=== PATIENT | female | born 2000 | race American Indian/Alaskan Native ===

== ENCOUNTER 2018-02-11 15:45 | Emergency (ER) | payer OTHER ==
[2018-02-11 16:05] VITALS: BP 117/80
[2018-02-11 16:38] LABS: Bilirubin,Urine NEG (Negative); Blood,Urine LG (Negative); Color,Urine Yellow (Yellow); Protein,Urine <15 mg/dL mg/dL (Negative); Urobilinogen,Urine < 2.0 mg/dL (<2.0)
[2018-02-11 16:55] LABS: HCG Qualitative,Urine Negative (Negative)
--- NOTE | 2018-02-11 20:33 | Emergency Department Report ---
Minor Respiratory - HPI Chief Complaint: Urogenital-Female Stated Complaint: SINUS FLARE UP Time Seen by Provider: 02/11/18 20:01 Duration: 3 Days Pain Location: Nose Severity: moderate Minor Respiratory: Yes Rhinorrhea, Yes Able to Tolerate Fluids, Yes Ear Pain ( left ear pain), Yes Cough, Yes Fever, No Sore Throat, No Sick Contacts, No Hemoptysis, No Chest Pain, No Shortness of Breath Other History: This is a 17 year-old female that presents with sinus pressure, nasal congestion, and left ear pain for 4 days. Patient states she feel like she has a fever occurs. She is having chills intermittently throughout the day. She denies taking any [id number] medication for symptom relief. Patient is also complaining of dysuria and vaginal discharge and requesting STD screening. Patient denies frequency, urgency, chest pain, shortness of breath, sore throat, and difficulty swallowing. ED Review of Systems ROS: Stated complaint: SINUS FLARE UP Other details as noted in HPI Constitutional: denies: chills, fever ENT: ear pain (left ear pain), congestion. denies: throat pain, dental pain, hearing loss, epistaxis Respiratory: cough. denies: shortness of breath, wheezing Cardiovascular: denies: chest pain, palpitations Gastrointestinal: denies: abdominal pain, nausea, vomiting, diarrhea Genitourinary: dysuria, discharge (White vaginal discharge). denies: urgency Musculoskeletal: denies: back pain, joint swelling, arthralgia Neurological: denies: headache, weakness, paresthesias Psychiatric: denies: anxiety, depression ED Past Medical Hx - Past Medical History Previous Medical History?: No - Surgical History Past Surgical History?: No - Social History Smoking Status: Current Some Day Smoker - Medications Home Medications: Home Medications Medication Instructions Recorded Confirmed Last Taken Type Amoxicillin/Potassium Clav 1 each PO BID 5 Days #10 tablet 02/11/18 Unknown Rx [Augmentin 875-125 Tablet] Benzonatate [Tessalon Perles] 100 mg PO Q8HR PRN #20 capsule 02/11/18 Unknown Rx Fluticasone [Flonase] 1 spray NS QDAY #1 bottle 02/11/18 Unknown Rx Phenazopyridine [Pyridium] 200 mg PO TID #6 tab 02/11/18 Unknown Rx Minor Respiratory Exam - Exam General: Vital signs noted. No distress. Alert and acting appropriately. HEENT: Yes Moist Mucous Membranes, Yes Rhinorrhea (turbinates congested with mucoid discharge), Yes Frontal Tenderness, No Pharyngeal Erythema, No Pharyngeal Exudates, No Conjuctival Injection, No Maxillary Tenderness Ear: Neither TM Bulge, Neither TM Erythema, Neither EAC Pain, Neither EAC Discharge Neck: Yes Supple, No Adenopathy Lungs: Yes Good Air Exchange, No Wheezes, No Ronchi, No Stridor, No Cough, No Labored Respirations, No Retractions, No Use of Accessory Muscles, No Other Abnormal Lung Sounds Heart: Yes Regular, No Murmur Abdomen: Yes Normal Bowel Sounds, No Tenderness, No Peritoneal Signs Skin: No Rash, No Edema Neurologic: Alert and oriented, no deficits. Musculoskeletal: Unremarkable. ED Course Vital Signs 02/11/18 16:00 Temperature 99.2 F Pulse Rate 99 H Respiratory 16 Rate Blood Pressure 117/80 O2 Sat by Pulse 98 Oximetry ED Medical Decision Making - Medical Decision Making 17 y.o. female that presents with fever, congestion, sinus pressure, and left ear pain. Patient examined by me and stable. No distress noted. Vitals stable. Physical finances susceptible of acute frontal sinusitis. Will start patient on Augmentin , Flonase, and benzonatate for sinusitis. Patient is also complaining of vaginal discharge and requesting STD screening. Urinalysis and urine hCG obtained, negative hCG, and small blood and leukocyte estrease. Patient was irate with nursing staff and decided to forego STD screening. Patient was given option to be empirically treated and refused. We'll only treat with Augmentin to cover sinusitis and urinary tract infection. Start pyridium for dysuria. Reviewed results with patient. Discharged home stable. Encouraged to do supportive care for URI. Follow up with Primary Care Provider in 2-3 days. Critical care attestation.: If time is entered above; I have spent that time in minutes in the direct care of this critically ill patient, excluding procedure time. ED Disposition Clinical Impression: Acute sinusitis Qualifiers: Sinusitis location: frontal Recurrence: non-recurrent Qualified Code(s): J01.10 - Acute frontal sinusitis, unspecified UTI (urinary tract infection) Qualifiers: Urinary tract infection type: acute cystitis Hematuria presence: with hematuria Qualified Code(s): N30.01 - Acute cystitis with hematuria Disposition: TO HOME OR SELFCARE Is pt being admited?: No Does the pt Need Aspirin: No Condition: Stable Instructions: Urinary Tract Infection in Women (ED), Sinusitis (ED) Additional Instructions: Increase fluid intake to 1 L while taking medication. Complete full course of antibiotics as prescribed. Take Tylenol or ibuprofen for fever control. Follow-up with primary care provider if symptoms are not improving in the next 2 -3 days. Prescriptions: Amoxicillin/Potassium Clav [Augmentin 875-125 Tablet] 1 each PO BID 5 Days #10 tablet Benzonatate [Tessalon Perles] 100 mg PO Q8HR PRN #20 capsule PRN Reason: Cough Fluticasone [Flonase] 1 spray NS QDAY #1 bottle Phenazopyridine [Pyridium] 200 mg PO TID #6 tab Referrals: [facility] [Outside] - 3-5 Days [facility] [Outside] - 3-5 Days [facility] [Outside] - 3-5 Days Forms: Work/School Release Form(ED) Time of Disposition: 20:48 Print Language: CENTRAL AFRICAN
== END 2018-02-11 20:50 | disposition home or self-care (01) ==
LOC: ED 15:45
DX: J01.10 Acute frontal sinusitis, unspecified (principal); N30.01 Acute cystitis with hematuria; F17.200 Nicotine dependence, unspecified, uncomplicated
CPT/HCPCS: 81001; 81025; 99283

== ENCOUNTER 2019-04-24 16:31 | Emergency (ER) | payer OTHER ==
[2019-04-24 16:40] VITALS: BP 123/57
== END 2019-04-24 18:01 | disposition left against medical advice (07) ==
LOC: ED 16:31
DX: R42 Dizziness and giddiness (principal); Z53.21 Procedure and treatment not carried out due to patient leaving prior to being seen by health care provider

== ENCOUNTER 2019-07-26 13:34 | Emergency (ER) | payer SELFPAY ==
[2019-07-26 13:44] VITALS: BP 106/49
--- NOTE | 2019-07-26 13:48 | Emergency Department Report ---
Chief Complaint: Urogenital-Female Stated Complaint: POSS PREG Time Seen by Provider: 07/26/19 13:42 - HPI History of Present Illness: This is a 19-year-old female nontoxic, well in appearance with no signs of distress presents to the ED for check. Stated has no menstrual cycle for 2 months. Denies any vaginal bleeding, pelvic pain, or abdominal pain. Patient stated she is asymptotic. Denies any vaginal discharge, vaginal pain, or swelling. Patient denies any urinary symptoms. Patient denies any fever, chills, headache, nausea, vomiting, chest pain or shortness of breathe. denies any other symptoms or complaints. Denies any allergies or PMH. - Exam Physical Exam: no pelvic pain. no vaginal bleeding. no abdominal pain. no urinary symptoms. no symptoms. MSE screening note: Focused history and physical exam performed. Due to findings the following was ordered: ED Medical Decision Making - Medical Decision Making This is a 19-year-old female that presents with nonmedical emergency complaint. Patient is just requested for a test. Patient denies any symptoms. I gave patient many different referrals to follow-up for testing. Patient was instructed to Follow-up with a primary care or OBGYN doctor in 3-5 days or if symptoms worsen and continue return to emergency room as soon as possible. At time of discharge, the patient does not seem toxic or ill in appearance. No acute signs of distress noted. Patient agrees to discharge treatment plan of care. No further questions noted by the patient. ED Disposition for MSE Clinical Impression: Encounter for test, result unknown Disposition: MED SCREENING EXAM-LEFT Is pt being admited?: No Does the pt Need Aspirin: No Condition: Stable Instructions: (ED) Additional Instructions: Follow-up with a primary care or OBGYN doctor in 3-5 days or if symptoms worsen and continue return to emergency room as soon as possible. Referrals: AMRIT CARPENTER MD [Primary Care Provider] - 3-5 Days JESUS MANUEL HOLLEY MD [Staff Physician] - 3-5 Days ANTIONETTE VENCES MD [Staff Physician] - 3-5 Days [facility] [Provider Group] - 3-5 Days [facility] [Outside] - 3-5 Days
== END 2019-07-26 15:56 | disposition left against medical advice (07) ==
LOC: ED 13:34
DX: Z32.00 Encounter for pregnancy test, result unknown (principal)
CPT/HCPCS: 99281